=== PATIENT | female | born 1980 | race Asian ===

== ENCOUNTER 2018-11-15 10:10 | Emergency (ER) | payer OTHER ==
[~2018-11-15] VITALS: Ht 160 cm; Wt 90.7 kg
[2018-11-15 10:21] VITALS: BP 115/59; TEMP 98.3
== END 2018-11-15 10:40 | disposition home or self-care (01) ==
LOC: ED 10:10
DX: L03.012 Cellulitis of left finger (principal)
CPT/HCPCS: 99282

== ENCOUNTER 2019-09-16 09:55 | Emergency (ER) | payer BC ==
[~2019-09-16] VITALS: Ht 160 cm; Wt 85.3 kg
[2019-09-16 10:28] VITALS: BP 98/59; TEMP 98.9
== END 2019-09-16 10:28 | disposition home or self-care (01) ==
LOC: ED 09:55
PROC: 2W2DX4Z Dressing of Left Lower Arm using Bandage (ICD-10-PCS; principal; 2019-09-16)
DX: T22.012A Burn of unspecified degree of left forearm, initial encounter (principal); T31.0 Burns involving less than 10% of body surface; X08.8XXA Exposure to other specified smoke, fire and flames, initial encounter; Y92.89 Other specified places as the place of occurrence of the external cause
CPT/HCPCS: 99282